=== PATIENT | male | born 2005 | race Two or more races ===

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

== ENCOUNTER 2025-06-20 19:00 | Emergency (ER) | payer OTHER ==
[~2025-06-20] VITALS: Ht 182.9 cm; Wt 73.0 kg
[2025-06-20 19:02] VITALS: BP 115/61; PULSE 93; RESP 18; TEMP 98.2; O2SAT 99
== END 2025-06-20 21:20 | disposition left against medical advice (07) ==
LOC: EMS 19:00
DX: M25.571 Pain in right ankle and joints of right foot (principal)
CPT/HCPCS: 99281; Z7502